=== PATIENT | female | born 1975 | race American Indian/Alaskan Native ===

== ENCOUNTER 2018-06-15 11:00 | Outpatient (CLI) | payer MEDICARE | END 2018-06-15 11:01 | disposition home or self-care (01) | LOC: SLR 11:00 | PROVIDERS: ATTEND Otolaryngology | DX: G47.31 Primary central sleep apnea (principal); I10 Essential (primary) hypertension; E66.9 Obesity, unspecified; Z88.0 Allergy status to penicillin; Z88.8 Allergy status to other drugs, medicaments and biological substances; Z90.710 Acquired absence of both cervix and uterus | CPT/HCPCS: 95810 ==

== ENCOUNTER 2018-06-28 11:00 | Outpatient (CLI) | payer MEDICARE | END 2018-06-28 11:01 | disposition home or self-care (01) | LOC: SLR 11:00 | PROVIDERS: ATTEND Otolaryngology | DX: G47.33 Obstructive sleep apnea (adult) (pediatric) (principal) | CPT/HCPCS: 95811 ==

== ENCOUNTER 2018-08-30 06:14 | Inpatient (IN) | payer MEDICARE ==
[2018-08-30] MEDS ORDERED: DECADRON ONE ×2 (07:28→11:00)
[2018-08-30] MEDS ORDERED: DIPRIVAN 10 MG/ML IV ONE (07:28)
[2018-08-30] MEDS ORDERED: XYLOCAINE MPF 2% ONE (07:28)
[2018-08-30] MEDS ORDERED: DILAUDID ONE (07:28)
[2018-08-30] MEDS ORDERED: TRANSDERM-SCOP TD SCH (08:00)
[2018-08-30] MEDS ORDERED: FLAGYL 500 MG/100 ML 500 MG/100 ML BAG IV NR (08:00)
[2018-08-30] MEDS ORDERED: LOVENOX SUB-Q NR (08:00)
[2018-08-30] MEDS ORDERED: ANCEF/STERILE WATER 2 GM/20 ML 2 GM/20 ML SYRINGE IV NR (08:00)
[2018-08-30] MEDS ORDERED: LACTATED RINGERS 1,000 ML IV SCH ×2 (08:00→10:00)
--- NOTE | 2018-08-30 08:35 | Anesthesia Day of Surgery ---
Anesthesia Day of Surgery - Day of Surgery Patient Examined: Yes Patient H&P Reviewed: Yes Patient is NPO: Yes
[2018-08-30] MEDS ORDERED: ZOFRAN IV PRN ×2 (08:36→09:55)
--- NOTE | 2018-08-30 08:36 | Anesthesia Consultation ---
Anesthesia Consult and Med Hx Date of service: 08/30/18 - Airway Anesthetic Teeth Evaluation: Good ROM Head & Neck: Adequate Mental/Hyoid Distance: Adequate Mallampati Class: Class I Intubation Access Assessment: Probably Good - Pulmonary Exam CTA: Yes - Cardiac Exam Cardiac Exam: RRR - Pre-Operative Health Status ASA Pre-Surgery Classification: ASA2 Proposed Anesthetic Plan: General - Pulmonary Hx Sleep Apnea: Yes - Cardiovascular System Hx Hypertension: Yes (SINCE 2001) - Central Nervous System Hx Psychiatric Problems: No - Gastrointestinal Hx Ulcer: Yes - Hematic Hx Anemia: Yes - Other Systems Hx Alcohol Use: Yes (OCCA) Hx Substance Use: No Hx Cancer: No Hx Obesity: Yes (s/p gastric bypass)
[2018-08-30] MEDS ORDERED: MARCAINE-EPI 0.5%-1:200,000 INFILTRATI ONE ×2 (09:32→09:50)
[2018-08-30] MEDS ORDERED: XYLOCAINE 1% 20 mL ONE (09:32)
[2018-08-30] MEDS ORDERED: WATER FOR IRRIG STERILE IR ONE (09:41)
[2018-08-30] MEDS ORDERED: NACL 0.9% IR ONE (09:50)
[2018-08-30] MEDS ORDERED: XYLOCAINE 1% 20 mL INFILTRATI ONE (09:50)
[2018-08-30] MEDS ORDERED: REGLAN IV PRN (09:55)
[2018-08-30] MEDS ORDERED: NORCO PO PRN (09:55)
[2018-08-30] MEDS ORDERED: APRESOLINE IV PRN (09:55)
[2018-08-30] MEDS ORDERED: ZEMURON IV ONE (10:30)
[2018-08-30] MEDS ORDERED: NEO SYNEPHRINE/NS Syringe(OR USE) IV ONE ×2 (10:39→11:00)
--- NOTE | 2018-08-30 11:35 | Operative Report ---
Operative Report Operative Report: OPERATIVE REPORT DATE OF PROCEDURE: 08/30/18 SURGEON: Maykel Maldonado MD LANGUAGE PATHOLOGIST: Cayetano See MD, Moe Ram CSA PREOPERATIVE DIAGNOSES: 1. Enterogastric reflux 2. Failed or complication of gastrojejunal anastomosis 3. Chronic dyspepsia POSTOPERATIVE DIAGNOSES: Same PROCEDURES PERFORMED: 1. Laparoscopic revision of gastrojejunostomy 2. Biliopancreatic limb lengthening 3. Hiatal hernia repair 4. Intraoperative endoscopy 5. Partial gastrectomy ANESTHESIA: General. SPECIMENS: Partial gastrectomy. ESTIMATED BLOOD LOSS: Less than 10 mL. COMPLICATIONS: None. INDICATION: Patient is a 42 year old female who had a gastric bypass in 2008 in [place] and has since began to experience chronic dyspepsia and weight regain. A recently performed EGD showed the patient had dilation of the gastrojejunostomy and gastric pouch indicating GJ failure. She wished to undergo revision. The risks, complications, and alternatives were explained, and informed consent was obtained. DESCRIPTION OF PROCEDURE: The patient was brought to the operating suite and laid in the supine position. She was given preoperative antibiotics and DVT prophylaxis. General anesthesia was induced and she was prepped and draped in the usual sterile fashion. A time out was called. A small incision was made at the base of the umbilicus and a veress needle was inserted with insufflation to a pressure of 15 mmHg. The incision was widened and a 12mm trocar was placed. No gross injury to any abdominal structures were noted below the site of entry. An additional 12mm trocar was placed in the right quadrant and two 5 mm ports in the epigastric and right upper quadrant. An additional 5mm trocar was placed in the left upper quadrant. The dominick limb was identified and then stapled just prior to the biliopancreatic limb at the J-J anastomosis. Hemostasis was obtained with electrocautery. Next the ileocecal valve was identified and the small bowel was run proximally for about 400cm. The 400cm bowel point was marked and then brought up the previously transected dominick- limb and a side to side anastomosis was created with a white linear stapler load. This created a 400cm alimentary limb and a long biliopancreatic limb. Next, a liver retractor was placed and the patient was repositioned in steep reverse [place]berg. She had dense adhesions to the undersurface of the liver that was first lysed. The hiatus was dissected out and the phrenoesophageal membrane was identified and dissected off the esophagus, revealing a small hiatal hernia. Using an 0 Surgigac suture, the crura was reapproximated, closing the defect and repairing the hernia. Using the hook cautery the gastric pouch was from the remnant stomach. An endoscope was inserted and the pouch was decreased in size by stapling via a blue load to the lateral portion of the pouch. Under direct vision, the gastrojejunostomy was closed from its dilated size down to a size of approximately 10mm to allow efflux of gastric contents but in effect to prevent reflux of small bowel contents back in to the pouch. This was accomplished using interrupted imbricating suture of 0 Surgidac. Next, the air was suctioned from the pouch and dominick limb prior to removing the endoscope. The partial gastrectomy was removed from the umbilical port site. The abdomen was desufflated and all trocars removed under direct visualization. The umbilical fascia was closed via a #1 PDS. The skin incisions were closed with 4-0 Monocryl; sterile bandages and tape were placed overtop. Patient was awoken and taken to recovery in stable condition. All counts were correct.
[2018-08-30] MEDS ORDERED: ZOFRAN ONE (11:37)
[2018-08-30] MEDS ORDERED: SUBLIMAZE ONE (11:38)
[2018-08-30] MEDS: DILAUDID IV PRN ×6 (12:12→22:43)
[2018-08-30] MEDS: APRESOLINE PO SCH ×2 (13:00→21:08)
[2018-08-30] MEDS: MYLICON PO PRN ×2 (14:20→20:21)
[2018-08-30] MEDS: MORPHINE IV PRN ×2 (16:57→20:20)
[2018-08-30] MEDS: LOPRESSOR PO SCH (21:08)
[2018-08-31] MEDS: MORPHINE IV PRN (03:27)
[2018-08-31 05:40] LABS: Basophils % (Auto) 0.1 % (0.0-1.8); Hematocrit 37.6 % (30.3-42.9); Hemoglobin 11.8 gm/dl (10.1-14.3); Lymphocytes # (Auto) 1.2 K/mm3 (1.2-5.4); Lymphocytes % (Auto) 6.3 % (13.4-35.0); Mean Corpuscular HGB Conc 31 % (30-34); Monocytes # (Auto) 0.8 K/mm3 (0.0-0.8); Monocytes % (Auto) 4.1 % (0.0-7.3); Platelet Count 555 K/mm3 (140-440); Red Blood Count 5.39 M/mm3 (3.65-5.03); Red Cell Distribution Width 16.7 % (13.2-15.2)
[2018-08-31 05:43] LABS: Mean Corpuscular Hemoglobin 22 pg (28-32); Mean Corpuscular Volume 70 fl (79-97)
[2018-08-31] MEDS ORDERED: MYLICON PO PRN (05:47)
[2018-08-31 06:03] LABS: BUN/Creatinine Ratio 15; Blood Urea Nitrogen 12 mg/dL (7-17); Calcium 9.5 mg/dL (8.4-10.2); Hemolysis Index 12
[2018-08-31] MEDS: DILAUDID IV PRN (06:05)
[2018-08-31] MEDS ORDERED: K-DUR PO ONE (06:38)
--- NOTE | 2018-08-31 06:44 | Progress Note ---
Assessment and Plan 42F dyspepsia s/p Lap GJ revision w/ BP lengthening 08/30/18 #1 sp Lap GJ revision, BP lengthen - encourage ambulation - encourage IS use - bariatric CLD. Order was for last night to start. - crush meds - simethicone PRN for gas - will inform Dr Maldonado and anesthesia staff of chipped tooth to determine when this happened - finish IVFs #2 Hypokalemia - replete today po Dispo: home today Subjective Date of service: 08/31/18 Principal diagnosis: Dysepspsia Interval history: Issues w/ IV beeping overnight. No IVFs running since 0200 (last 4.5 hrs now). She has been eating ice chips only as she states she was told she was NPO till the morning. No nausea. Ambulating. She reports her front tooth is chipped now after surgery, once she was transferred to her room. Objective - Exam Narrative Exam: GEN: AAO, NAD HEENT: Anicteric HEART: RRR LUNGS: CTAB ABD: Soft, NT, ND, bandages c/d/i EXT: No LE edema - Constitutional Vitals: Vital Signs - 12hr 08/30/18 08/30/18 08/30/18 20:09 20:10 20:11 Temperature 99.4 F Pulse Rate 104 H 105 H Respiratory 17 Rate Blood Pressure 142/88 Blood Pressure [Left] O2 Sat by Pulse 96 96 Oximetry 08/30/18 08/30/18 08/30/18 21:34 23:44 23:45 Temperature 98.8 F Pulse Rate 109 H 107 H Respiratory 18 Rate Blood Pressure 121/78 121/78 Blood Pressure [Left] O2 Sat by Pulse 99 94 94 Oximetry 08/31/18 08/31/18 04:28 05:39 Temperature 98.7 F Pulse Rate 105 H 103 H Respiratory 18 Rate Blood Pressure Blood Pressure 130/72 [Left] O2 Sat by Pulse 95 94 Oximetry - Labs CBC & Chem 7: 08/31/18 04:29 08/31/18 04:29 Labs: Abnormal lab results 08/31/18 08/31/18 Range/Units 04:29 04:29 WBC 18.5 H (4.5-11.0) K/mm3 RBC 5.39 H (3.65-5.03) M/mm3 MCV 70 L (79-97) fl MCH 22 L (28-32) pg RDW 16.7 H (13.2-15.2) % Plt Count 555 H (140-440) K/mm3 Lymph % (Auto) 6.3 L (13.4-35.0) % Seg Neutrophils % 89.5 H (40.0-70.0) % Seg Neutrophils # 16.6 H (1.8-7.7) K/mm3 Potassium 3.5 L (3.6-5.0) mmol/L
--- NOTE | 2018-08-31 06:47 | Discharge Summary ---
Providers - Providers Date of Admission: 08/30/18 06:14 Date of discharge: 08/31/18 Attending physician: GONZALO MALDONADO Primary care physician: KRISS GALE Hospitalization Reason for admission: postop care Condition: Good Procedures: 08/30/18: Laparoscopic gastrojejunostomy revision with biliopancreatic limb lengthening, upper endoscopy Hospital course: 42F admitted after operation. She was managed on the regular surgical cheng. Tolerated diet with no issues. Ambulated. Issues w/ IV so did not get full bag of hydration. Also noted a chipped front tooth after surgery. Discharged home in stable condition. Disposition: DC-01 TO HOME OR SELFCARE Core Measure Documentation - Palliative Care Palliative Care/ Comfort Measures: Not Applicable - Core Measures Any of the following diagnoses?: none - VTE Discharge Requirements Deep Vein Thrombosis/Pulmonary Embolism Present on Admission: No - Acute [place] Discharge Requirements Aspirin at discharge: No Reason for no aspirin on DC: Surgical contraindication - Heart Failure Discharge Requirements JOSE/ARB for LVSD if EF <40%: Not Applicable Exam - Physical Exam Narrative exam: GEN: AAO, NAD HEENT: Anicteric HEART: RRR LUNGS: CTAB ABD: Soft, NT, ND, bandages c/d/i EXT: No LE edema - Constitutional Vitals: Temp Pulse Resp BP Pulse Ox 98.7 F 103 H 18 130/72 94 08/31/18 05:39 08/31/18 05:39 08/31/18 05:39 08/31/18 05:39 08/31/18 05:39 Plan Diet: other (bariatric CLD) Wound: keep clean and dry, change dressing Additional Instructions: f/u Dr Maldonado as already scheduled Follow up with: KRISS GALE MD [Primary Care Provider] - 7 Days
[2018-08-31 08:05] VITALS: BP 125/80
[2018-08-31] MEDS ORDERED: COZAAR PO SCH (10:00)
[2018-08-31] MEDS ORDERED: PROTONIX PO SCH (10:00)
[2018-08-31] MEDS ORDERED: LOVENOX SUB-Q SCH (10:00)
[2018-08-31] MEDS ORDERED: NORVASC PO SCH (10:00)
[2018-08-31] MEDS: APRESOLINE PO SCH (15:47)
[2018-08-31] MEDS: LOPRESSOR PO SCH (15:47)
== END 2018-08-31 17:00 | disposition home or self-care (01) | DRG 328 ==
LOC: 3A 06:14 → 3B-SURG 12:41
PROVIDERS: ADMIT Specialist; ATTEND Specialist
PROC: 0D164ZA Bypass Stomach to Jejunum, Percutaneous Endoscopic Approach (ICD-10-PCS; principal; 2018-08-30)
PROC: 0DB64ZZ Excision of Stomach, Percutaneous Endoscopic Approach (ICD-10-PCS; 2018-08-30)
PROC: 0FN04ZZ Release Liver, Percutaneous Endoscopic Approach (ICD-10-PCS; 2018-08-30)
PROC: 0BQT4ZZ Repair Diaphragm, Percutaneous Endoscopic Approach (ICD-10-PCS; 2018-08-30)
DX: K95.89 Other complications of other bariatric procedure (principal); E87.6 Hypokalemia; R10.13 Epigastric pain; G47.30 Sleep apnea, unspecified; I10 Essential (primary) hypertension; E66.9 Obesity, unspecified; K21.9 Gastro-esophageal reflux disease without esophagitis; Y83.8 Other surgical procedures as the cause of abnormal reaction of the patient, or of later complication, without mention of misadventure at the time of the procedure; Y82.8 Other medical devices associated with adverse incidents; K44.9 Diaphragmatic hernia without obstruction or gangrene; K66.0 Peritoneal adhesions (postprocedural) (postinfection); Z72.89 Other problems related to lifestyle; Z98.84 Bariatric surgery status; Z68.38 Body mass index [BMI] 38.0-38.9, adult
CPT/HCPCS: 36415; 80048; 84132; 85025; 88307; 94760; J1100; J1170; J1650; J2270; J2370; J2405; J2704; J2765; J3010; J7120